=== PATIENT | female | born 1940 | race Caucasian/White ===

== ENCOUNTER 2022-10-20 09:04 | Inpatient (IN) | payer MEDICARE, OTHER ==
[~2022-10-20] VITALS: Ht 157.5 cm; Wt 91.6 kg
[~2022-10-20 09:04] MED LIST: ASPIR 8181 MG PO; BACTROBAN15 GM TOP; CIPRO500 MG PO; CYCLOBENZAPRINE5 MG PO; LOSARTAN POTASS25 MG PO; MELOXICAM7.5 MG PO; METFORMIN HCL500 MG PO; METOPROLOL TART25 MG PO; MOTRIN200 MG PO; PROZAC10 MG PO; RA GLUCOSAMINE PO; SIMVASTATIN20 MG PO; ULTRAM50 MG PO
[2022-10-20] MEDS ORDERED: KETOROLAC TROMETHAMINE 30 MG/ML VIAL IV STA (09:44)
[2022-10-20 10:37] LABS: BASOPHILS # (AUTO) 0.1 (0.0-0.1); BASOPHILS % 1.5 % (0.0-1.0); EOSINOPHILS # (AUTO) 0.2 (0.0-0.4); EOSINOPHILS % 2.6 % (0.0-6.0); HEMATOCRIT 43.6 % (34.2-44.1); HEMOGLOBIN 14.4 g/dL (12.0-16.0); LYMPHOCYTES # (AUTO) 1.5 (1.0-3.2); LYMPHOCYTES % 17.2 % (18.0-39.1); MEAN CORPUSCULAR HEMOGLOBIN 27.4 pg (28-32); MEAN CORPUSCULAR VOLUME 82.9 fL (81-99); MONOCYTES # (AUTO) 0.6 (0.2-0.8); MONOCYTES % 6.3 % (4.4-11.3); NEUTROPHILS # (AUTO) 6.5 (2.1-6.9); NEUTROPHILS % 72.2 % (38.7-80.0); PLATELET COUNT 268 x10e3/uL (140-360); RED BLOOD COUNT 5.26 x10e6/uL (3.6-5.1); RED CELL DISTRIBUTION WIDTH 14.8 % (11.7-14.4)
[2022-10-20 10:43] LABS: CLARITY,URINE CLEAR (CLEAR); COLOR,URINE YELLOW (YELLOW); KETONES,URINE NEGATIVE (NEGATIVE); LEUKOCYTE ESTERASE ,URINE TRACE (NEGATIVE); NITRITE,URINE NEGATIVE (NEGATIVE); PROTEIN,URINE DIPSTICK 2+ (NEGATIVE); URINE UROBILINOGEN 0.2 mg/dL (0.2 - 1)
[2022-10-20 10:56] LABS: WBC,URINE (MAN) 21-50 /HPF (0-5)
[2022-10-20 10:59] LABS: RBC,URINE >50 /HPF (0-5)
[2022-10-20 11:02] LABS: ALBUMIN 3.6 g/dL (3.5-5.0); ALBUMIN/GLOBULIN RATIO 1.1 (0.8-2.0); ANION GAP 15.8 mmol/L (8-16); CALCIUM 9.2 mg/dL (8.4-10.2); CREATININE, SERUM 0.85 mg/dL (0.57-1.11); POTASSIUM 3.8 mmol/L (3.5-5.1)
[2022-10-20 11:28] LABS: INR 0.94
[2022-10-20] MEDS ORDERED: ONDANSETRON HCL INJ 2MG/ML 2ML 2 MG/ML VIAL IV PRN (11:45)
[2022-10-20] MEDS ORDERED: Vancomycin IV 1 GM in SODIUM CHLORIDE 0.9% 250ML 250 ML IV ONE (12:00)
[2022-10-20] MEDS: SODIUM CHLORIDE 0.9% 1000ML 1,000 ML IV SCH (12:50)
[2022-10-20] MEDS ORDERED: ACETAMINOPHEN 1000 MG/100 ML 100 ML IV ONE (15:11)
[2022-10-20] MEDS ORDERED: SIMETHICONE 80 MG CHEW PO PRN (15:15)
[2022-10-20] MEDS ORDERED: METOPROLOL TARTRATE INJ 1 MG/ML VIAL IV PRN (15:15)
[2022-10-20] MEDS ORDERED: TRAMADOL HCL 50 MG TAB PO PRN (15:15)
[2022-10-20] MEDS ORDERED: DOCUSATE SODIUM 100 MG CAP PO PRN (15:15)
[2022-10-20] MEDS: ACETAMINOPHEN 1000 MG/100 ML IV SCH (15:19)
[2022-10-20 16:05] VITALS: BP 146/73; PULSE 55; RESP 18; TEMP 97.8; O2SAT 99
[2022-10-20] MEDS ORDERED: AMLODIPINE BESYL5 MG PO (16:53)
[2022-10-20] MEDS ORDERED: OMEPRAZOLE40 MG PO (16:53)
[2022-10-20 20:00] VITALS: BP 141/66; PULSE 65; RESP 18; TEMP 98.4; O2SAT 98
[2022-10-20] MEDS: SIMVASTATIN 20 MG TAB PO SCH (20:36)
[2022-10-20] MEDS: FLUOXETINE HCL 10 MG CAP PO SCH (20:37)
[2022-10-20] MEDS: METOPROLOL TARTRATE 50 MG TAB PO SCH (20:37)
[2022-10-20 21:00] VITALS: BP 141/66; PULSE 65; RESP 18; TEMP 98.4; O2SAT 98
[2022-10-21] VITALS (8 sets, daily range): BP systolic 114–155; BP diastolic 57–73; PULSE 52–70; RESP 16–19; TEMP 97.5–98.9; O2SAT 96–100
[2022-10-21] MEDS: TRAZODONE HCL 50 MG TAB PO SCH (01:24)
[2022-10-21] MEDS: ACETAMINOPHEN 1000 MG/100 ML IV SCH ×3 (01:25→11:59)
[2022-10-21] MEDS: SODIUM CHLORIDE 0.9% 1000ML 1,000 ML IV SCH ×2 (01:26→14:41)
[2022-10-21 06:19] LABS: BASOPHILS # (AUTO) 0.1 (0.0-0.1); BASOPHILS % 1.3 % (0.0-1.0); EOSINOPHILS # (AUTO) 0.3 (0.0-0.4); EOSINOPHILS % 3.9 % (0.0-6.0); HEMATOCRIT 36.5 % (34.2-44.1); LYMPHOCYTES # (AUTO) 2.2 (1.0-3.2); LYMPHOCYTES % 28.1 % (18.0-39.1); MEAN CORPUSCULAR HEMOGLOBIN 27.1 pg (28-32); MEAN CORPUSCULAR HGB CONC 31.8 g/dL (31-35); MEAN CORPUSCULAR VOLUME 85.3 fL (81-99); MONOCYTES # (AUTO) 0.7 (0.2-0.8); MONOCYTES % 8.5 % (4.4-11.3); NEUTROPHILS # (AUTO) 4.5 (2.1-6.9); NEUTROPHILS % 57.8 % (38.7-80.0); PLATELET COUNT 192 x10e3/uL (140-360); RED BLOOD COUNT 4.28 x10e6/uL (3.6-5.1); RED CELL DISTRIBUTION WIDTH 14.5 % (11.7-14.4)
[2022-10-21 06:24] LABS: HEMOGLOBIN 11.6 g/dL (12.0-16.0)
[2022-10-21 06:45] LABS: ALBUMIN/GLOBULIN RATIO 1.1 (0.8-2.0); CALCIUM 8.8 mg/dL (8.4-10.2); CREATININE, SERUM 0.92 mg/dL (0.57-1.11)
[2022-10-21] MEDS: AMLODIPINE BESYLATE 5 MG TAB PO SCH (11:59)
[2022-10-21] MEDS ORDERED: ONDANSETRON HCL 4 MG ORAL DISINTEGRATING TAB PO PRN (14:15)
[2022-10-21] MEDS: FLUOXETINE HCL 10 MG CAP PO SCH (20:31)
[2022-10-21] MEDS: SIMVASTATIN 20 MG TAB PO SCH (20:31)
[2022-10-21] MEDS: METOPROLOL TARTRATE 50 MG TAB PO SCH (20:32)
[2022-10-21] MEDS: MELATONIN 3 MG TAB PO PRN (20:49)
[2022-10-22] VITALS (9 sets, daily range): BP systolic 122–157; BP diastolic 62–77; PULSE 58–74; RESP 14–18; TEMP 97.5–98.4; O2SAT 89–100
[2022-10-22] MEDS: SODIUM CHLORIDE 0.9% 1000ML 1,000 ML IV SCH ×2 (05:11→22:09)
[2022-10-22] MEDS: AMLODIPINE BESYLATE 5 MG TAB PO SCH (09:03)
[2022-10-22] MEDS ORDERED: ACETAMINOPHEN 1000 MG/100 ML 100 ML IV ONE (10:00)
[2022-10-22] MEDS ORDERED: IOPAMIDOL 610MG/1ML 300 MG/ML VIAL IV ONE (12:38)
[2022-10-22] MEDS ORDERED: PHENAZOPYRIDINE HCL 100 MG TAB PO PRN (13:15)
[2022-10-22] MEDS ORDERED: TRAMADOL HCL 50 MG TAB PO PRN (13:15)
[2022-10-22] MEDS ORDERED: FENTANYL CITRATE/PF 100MCG/2 ML INJ ONE (13:24)
[2022-10-22] MEDS ORDERED: EPHEDRINE SULFATE INJ 50 MG/ML VIAL ONE (15:45)
[2022-10-22] MEDS ORDERED: SEVOFLURANE INHAL SOLN 250 ML PEN BTL ONE (15:45)
[2022-10-22] MEDS ORDERED: LIDOCAINE HCL 2% LOCAL INJ 5 ML SDV VIAL INJ ONE (15:45)
[2022-10-22] MEDS ORDERED: POVIDONE IODINE 0.05% 0.05 % ML PO ONE (15:45)
[2022-10-22] MEDS ORDERED: PROPOFOL IV EMULSION 10 MG/ML 20 ML VIAL ONE (15:45)
[2022-10-22] MEDS ORDERED: PHENYLEPHRINE HCL 1% 10 MG/ML VIAL ONE (15:45)
[2022-10-22] MEDS ORDERED: DEXAMETHASONE SOD PHOS INJ 4 MG/ML SDV ONE (15:45)
[2022-10-22] MEDS ORDERED: GLYCOPYRROLATE INJ 0.2 MG/ML VIAL ONE (15:45)
[2022-10-22] MEDS ORDERED: ONDANSETRON HCL INJ 2MG/ML 2ML 2 MG/ML VIAL ONE (15:45)
[2022-10-22] MEDS: MELATONIN 3 MG TAB PO PRN (22:09)
[2022-10-22] MEDS: TRAZODONE HCL 50 MG TAB PO SCH (22:09)
[2022-10-22] MEDS: FLUOXETINE HCL 10 MG CAP PO SCH (22:09)
[2022-10-22] MEDS: SIMVASTATIN 20 MG TAB PO SCH (22:09)
[2022-10-22] MEDS: METOPROLOL TARTRATE 50 MG TAB PO SCH (22:10)
[2022-10-23 04:00] VITALS: BP 143/72; PULSE 61; RESP 18; TEMP 98.1; O2SAT 98
[2022-10-23] MEDS: SODIUM CHLORIDE 0.9% 1000ML 1,000 ML IV SCH (05:15)
[2022-10-23 06:35] VITALS: PULSE 85; RESP 14; O2SAT 95
[2022-10-23 08:13] VITALS: BP 136/74; PULSE 64; RESP 18; TEMP 97.9; O2SAT 99
[2022-10-23 08:29] LABS: BASOPHILS % 0.3 % (0.0-1.0); HEMATOCRIT 38.3 % (34.2-44.1); HEMOGLOBIN 12.1 g/dL (12.0-16.0); LYMPHOCYTES # (AUTO) 0.9 (1.0-3.2); LYMPHOCYTES % 9.2 % (18.0-39.1); MEAN CORPUSCULAR HEMOGLOBIN 27.1 pg (28-32); MEAN CORPUSCULAR HGB CONC 31.6 g/dL (31-35); MEAN CORPUSCULAR VOLUME 85.9 fL (81-99); MONOCYTES # (AUTO) 0.4 (0.2-0.8); MONOCYTES % 4.2 % (4.4-11.3); NEUTROPHILS # (AUTO) 8.3 (2.1-6.9); PLATELET COUNT 240 x10e3/uL (140-360); RED BLOOD COUNT 4.46 x10e6/uL (3.6-5.1); RED CELL DISTRIBUTION WIDTH 14.6 % (11.7-14.4)
[2022-10-23] MEDS: AMLODIPINE BESYLATE 5 MG TAB PO SCH (08:31)
[2022-10-23 08:53] LABS: ANION GAP 14.3 mmol/L (8-16); CALCIUM 9.1 mg/dL (8.4-10.2); CREATININE, SERUM 0.73 mg/dL (0.57-1.11); POTASSIUM 4.3 mmol/L (3.5-5.1)
[2022-10-23 12:24] VITALS: BP 127/62; PULSE 76; RESP 19; TEMP 98.7; O2SAT 98
== END 2022-10-23 15:23 | disposition home or self-care (01) | DRG 660 ==
LOC: ER 09:12 → ERHOLD 11:51 → MED/SURG3 16:03
PROVIDERS: ADMIT Internal Medicine; ATTEND Internal Medicine
PROC: 0TF38ZZ Fragmentation in Right Kidney Pelvis, Via Natural or Artificial Opening Endoscopic (ICD-10-PCS; 2022-10-22)
PROC: BT14ZZZ Fluoroscopy of Kidneys, Ureters and Bladder (ICD-10-PCS; 2022-10-22)
PROC: 0T768DZ Dilation of Right Ureter with Intraluminal Device, Via Natural or Artificial Opening Endoscopic (ICD-10-PCS; principal; 2022-10-22 10:43)
DX: N10 Acute pyelonephritis (principal); E87.20 Acidosis, unspecified; Z68.41 Body mass index [BMI] 40.0-44.9, adult; N39.0 Urinary tract infection, site not specified; N20.0 Calculus of kidney; E86.0 Dehydration; K80.20 Calculus of gallbladder without cholecystitis without obstruction; K57.90 Diverticulosis of intestine, part unspecified, without perforation or abscess without bleeding; E66.01 Morbid (severe) obesity due to excess calories; E78.5 Hyperlipidemia, unspecified; E11.9 Type 2 diabetes mellitus without complications; R31.29 Other microscopic hematuria; N95.2 Postmenopausal atrophic vaginitis; N81.6 Rectocele; Z87.442 Personal history of urinary calculi; Z20.822 Contact with and (suspected) exposure to COVID-19
CPT/HCPCS: 36415; 51700; 74176; 80048; 80053; 81001; 82550; 82948; 83970; 84484; 84550; 85025; 85610; 85730; 87086; 94799; 96361; 99284; C1758; C1769; C2617; J0696; J1100; J1885; J2001; J2370; J2405; J7030; J7050